=== PATIENT | female | born 1940 | race Two or more races ===

== ENCOUNTER 2020-05-24 14:42 | Emergency (ER) | payer MEDICARE ==
[2020-05-24] MEDS ORDERED: IBUPROFEN 400 MG TABLET PO ONE (15:02)
--- NOTE | 2020-05-24 15:06 | ER Document Report ---
ED Neck/Back Problem - General Chief Complaint: Back Pain Stated Complaint: FALL/BACK PAIN Time Seen by Provider: 05/24/20 14:54 Primary Care Provider: JULIO CESAR DORSEY NP [Primary Care Provider] - Follow up in 3-5 days Mode of Arrival: Ambulatory Information source: Patient, Relative Cannot obtain history due to: Dementia - Most of medical history and history of events given by daughter Notes: 80-year-old female presented to ED for complaint of low back pain. Daughter states that she fell on Tuesday morning and then today she said that her back started to hurt. She had a complete physical on Tuesday and everything was good. Daughter states she did give her a 500 mg Tylenol yesterday but she is been okay since then. She states she thinks the pain is just because she wants more attention but she brought her in just to make sure. Patient does have dementia hypothyroid osteoporosis and repair of umbilical hernia. Patient is a lert oriented respirations regular nonlabored speaking in full sentences. Constitutional: Negative for fever. HENT: Negative for sore throat. Eyes: Negative for visual changes. Cardiovascular: Negative for chest pain. Respiratory: Negative for shortness of breath. Gastrointestinal: Negative for abdominal pain, vomiting or diarrhea. Genitourinary: Negative for dysuria. Musculoskeletal: Bilateral low back pain. Daughter states she fell Tuesday. She has full range of motion moving well for her age Skin: Negative for rash. Neurological: Negative for headaches, weakness or numbness. 10 point ROS negative except as marked above and in HPI. PHYSICAL EXAMINATION: GENERAL: Well-appearing, well-nourished and in no acute distress. HEAD: Atraumatic, normocephalic. EYES: Pupils equal round extraocular movements intact, conjunctiva are normal. ENT: Nares patent NECK: Normal range of motion LUNGS: No respiratory distress Musculoskeletal: Normal range of motion tenderness to the low back area bilaterally no vertebral tenderness. No signs of cauda equina, no loss control of bowel bladder, no saddle anesthesia, no loss of control or sensation to the lower extremities. Patient is walking well for her age NEUROLOGICAL: Normal speech, normal gait. PSYCH: Normal mood, normal affect. SKIN: Warm, Dry, normal turgor, no rashes or lesions noted. - HPI Patient complains to provider of: Pain, Injury - Possible, Lower back Onset: Other - Tuesday Where: Home, Indoors Onset: Gradual Timing: Still present Quality of pain: Achy Severity: Moderate Pain Level: 3 Context: Fall/near-fall Recent injury: Possibly Associated symptoms: Lower back pain. denies: Constipation, Fever, Incontinence, Like prior neck/back pain, Motor loss, Numbness/tingling, Radiation to arm, Radiation to chest, Radiation to leg, Sensory loss, Sweaty, Unable to urinate, Upper back pain Exacerbated by: Movement of trunk Relieved by: Nothing Similar symptoms previously: Yes Recently seen / treated by doctor: Yes - Related Data Allergies/Adverse Reactions: No Known Allergies Allergy (Verified 05/24/20 14:59) Past Medical History - General Information source: Patient, Relative Cannot obtain history due to: Dementia - Social History Smoking Status: Never Smoker Frequency of alcohol use: None Drug Abuse: None Lives with: Family Family History: Reviewed & Not Pertinent Patient has suicidal ideation: No Patient has homicidal ideation: No - Past Medical History Cardiac Medical History: Reports: None Pulmonary Medical History: Reports: None EENT Medical History: Reports: None Neurological Medical History: Reports: None Endocrine Medical History: Reports: Hx Hypothyroidism Renal/ Medical History: Reports: None Malignancy Medical History: Reports: None GI Medical History: Reports: None Musculoskeletal Medical History: Reports Hx Arthritis, Reports Hx Musculoskeletal Deformity Skin Medical History: Reports None Psychiatric Medical History: Reports: None Traumatic Medical History: Reports: None Infectious Medical History: Reports: None Past Surgical History: Reports: Hx Umbilical Hernia - Immunizations Immunizations up to date: Yes Physical Exam - Vital signs Vitals: Temp Pulse Resp BP Pulse Ox 98.5 F 86 18 124/99 H 95 05/24/20 14:50 05/24/20 14:50 05/24/20 14:50 05/24/20 14:50 05/24/20 14:50 Course - Re-evaluation Re-evalutation: 05/24/20 18:08 X-ray shows a T11 compression fracture indeterminate age. She has no tenderness to this area. Most of her pain is in the very lower back area. She does have moderate amount of stool noted on the x-ray as well. I have discussed with daughter possibly using MiraLAX and coffee and juice to help to clear this up. I have discussed the compression fracture that she should follow-up with her primary care doctor and a radiologist to see if they need to treat this compression fracture. She has no bony tenderness in that area at this time. - Vital Signs Vital signs: Temp Pulse Resp BP Pulse Ox 98.6 F 68 18 169/83 H 97 05/24/20 18:16 05/24/20 18:16 05/24/20 18:16 05/24/20 18:16 05/24/20 18:16 - Laboratory Laboratory results interpreted by me: 05/24/20 15:15 Urine Ascorbic Acid 20 H - Diagnostic Test Radiology reviewed: Image reviewed, Reports reviewed Discharge - Discharge Clinical Impression: T12 compression fracture age indeterminate Fall Qualifiers: Encounter type: initial encounter Qualified Code(s): W19.XXXA - Unspecified fall, initial encounter Low back pain Qualifiers: Chronicity: acute Back pain laterality: bilateral Sciatica presence: without sciatica Qualified Code(s): M54.5 - Low back pain Condition: Stable Disposition: HOME, SELF-CARE Additional Instructions: LOW BACK PAIN: Three out of every four people will have an episode of disabling back pain during their lifetime. Most commonly the pain is due to straining of the muscles and ligaments in the low back. Usual treatment includes: (1) Rest on a firm surface. Avoid lying on your stomach. (2) Ice pack the painful area. After a few days, gentle heat may be used intermittently to relax the area, or ice packs can be continued. (3) Medication may be needed -- muscle relaxers and antiinflammatory medicines are commonly used. (4) As the back improves, exercises are prescribed to strengthen the back and abdominal muscles. Your doctor will advise you on the proper care for your back at each stage in your recovery. You may be better in a few days -- or healing may take several weeks. If new symptoms of a "herniated disc" (radiation of pain, numbness, or tingling down the back of the leg or weakness in the leg) occur, you should be re-examined. Further testing may be necessary. Acetaminophen Acetaminophen may be taken for pain relief or fever control. It's much safer than aspirin, offering a wider range of "safe" dosages. It is safe during . Some brand names are Tylenol, Panadol, Datril, Anacin 3, Tempra, and Liquiprin. Acetaminophen can be repeated every four hours. The following are maximum recommended dosages: WEIGHT Dose Drops Elixir Chewable(80mg) (LBS.) drprs=droppers tsp=teaspoon 6 40 mg .4 ml (1/2) 6-11 80 mg .8 ml (full) 1/2 tsp 1 tab 12-16 120 mg 1 1/2 drprs 3/4 tsp 1 1/2 tabs 17-23 160 mg 2 drprs 1 tsp 2 tabs 24-30 240 mg 3 drprs 1 1/2 tsp 3 tabs 30-35 320 mg 2 tsp 4 tabs 36-41 360 mg 2 1/4 tsp 4 1/2 tabs 42-47 400 mg 2 1/2 tsp 5 tabs 48-53 480 mg 3 tsp 6 tabs 54-59 520 mg 3 1/4 tsp 6 1/2 tabs 60-64 560 mg 3 1/2 tsp 7 tabs 65-70 600 mg 3 3/4 tsp 7 1/2 tabs 71-76 640 mg 4 tsp 8 tabs 77-82 720 mg 4 1/2 tsp 9 tabs 83-88 800 mg 5 tsp 10 tabs >89 pounds or adults 650 mg to 900 mg Acetaminophen can be repeated every four hours. Maximum daily dose not to exceed 4000 mg. These maximum recommended dosages are slightly higher than the dosages written on the product container, but these dosages are very safe and well below the toxic dosage for acetaminophen. Ibuprofen 400 mg every 8 hours as needed Ibuprofen is an excellent, safe drug for pain control. In addition, it has potent antiinflammatory effects which are beneficial, especially in the treatment of injuries, arthritis, or tendonitis. It's best to take ibuprofen with food. Persons with ulcer disease or allergy to aspirin should notify their physician of this before taking ibuprofen. Take the medication exactly as prescribed. Don't take additional doses unless instructed to do so by your doctor. If you develop wheezing, shortness of breath, hives, faintness, stomach pain, vomiting, or dark black stools, return for re-evaluation at once. Patient does have moderate amount of stool noted on the x-ray. I have discussed with you using a capful of MiraLAX in her coffee or juice twice a day for the next several days and to follow-up with primary care concerning the compression fracture at T12 and the amount of stool on the x-ray. FOLLOW-UP CARE: If you have been referred to a physician for follow-up care, call the physicians office for an appointment as you were instructed or within the next two days. If you experience worsening or a significant change in your symptoms, notify the physician immediately or return to the Emergency Department at any time for re-evaluation. Referrals: JULIO CESAR DORSEY NP [Primary Care Provider] - Follow up in 3-5 days
[2020-05-24 15:42] LABS: APPEARANCE,URINE CLEAR; BILIRUBIN,URINE NEGATIVE (NEGATIVE); COLOR,URINE YELLOW; GLUCOSE, URINE NEGATIVE (NEGATIVE); KETONES,URINE NEGATIVE (NEGATIVE); LEUKOCYTE ESTERASE,URINE NEGATIVE (NEGATIVE); NITRITE,URINE NEGATIVE (NEGATIVE); PROTEIN,URINE NEGATIVE (NEGATIVE); URINE SPECIFIC GRAVITY 1.015; UROBILINOGEN,URINE NEGATIVE mg/dL (<2.0)
--- NOTE | 2020-05-24 16:20 | RADIOLOGY REPORT (SQ) ---
EXAM DESCRIPTION: L SPINE WHOLE IMAGES COMPLETED DATE/TIME: 05/24/2020 3:31 pm REASON FOR STUDY: Fall low back pain COMPARISON: None. NUMBER OF VIEWS: Five views including obliques. TECHNIQUE: AP, lateral, oblique, and sacral radiographic images acquired of the lumbar spine. LIMITATIONS: None. FINDINGS: MINERALIZATION: Osteopenia. ALIGNMENT: There is mild dextrocurvature of the lumbar spine. VERTEBRAE: There is compression fracture with anterior wedging at T12. No compression deformity note d at the lumbar spine. DISCS: Multilevel disc space narrowing with osteophytes. POSTERIOR ELEMENTS: No pars defect. Facet arthropathy is present. HARDWARE: None in the spine. PARASPINAL SOFT TISSUES: Normal. PELVIS: Degenerative changes at the bilateral sacroiliac joints. IMPRESSION: Osteopenia. Degenerative changes. Compression fracture with anterior wedging at T12, o f indeterminate age. Please correlate with point tenderness. If there is persistent clinical concer n for acute fracture, MRI can be obtained for further evaluation. TECHNICAL DOCUMENTATION: JOB ID: [id number] [employer]- All Rights Reserved Reading location - IP/workstation name: [email or web address]
[2020-05-24 18:16] VITALS: BP 169/83
== END 2020-05-24 18:14 | disposition home or self-care (01) ==
LOC: ER 14:42
DX: M48.54XA Collapsed vertebra, not elsewhere classified, thoracic region, initial encounter for fracture (principal); M54.5 Low back pain; F03.90 Unspecified dementia, unspecified severity, without behavioral disturbance, psychotic disturbance, mood disturbance, and anxiety; W19.XXXA Unspecified fall, initial encounter
CPT/HCPCS: 99283; 87086; 81001; 72110; A9270; J3490